=== PATIENT | female | born 1970 | race Caucasian/White ===

== ENCOUNTER 2016-04-01 21:03 | Emergency (ER) | payer MEDICARE | END 2016-04-02 03:04 | disposition home or self-care (01) | LOC: ER 21:03 | DX: L03.313 Cellulitis of chest wall (principal); F17.210 Nicotine dependence, cigarettes, uncomplicated | CPT/HCPCS: 36415; 85025 ==

== ENCOUNTER 2016-04-15 13:46 | Inpatient (IN) | payer MEDICARE ==
[~2016-04-15] VITALS: Ht 149.9 cm; Wt 37.1 kg
[2016-04-15] MEDS ORDERED: ONDANSETRON 4 MG VIAL ONE (17:16)
[2016-04-15] MEDS ORDERED: SODIUM CHLORIDE 0.9% 1,000 ML ONE (17:16)
[2016-04-15] MEDS ORDERED: VANCOMYCIN 750 MG in SODIUM CHLORIDE 0.9% 250 ML IV ONE (17:25)
[2016-04-15] MEDS ORDERED: MORPHINE 4 MG/ML SYR ONE ×2 (17:55→19:33)
[2016-04-15 22:04] VITALS: BP_SYST 100; RESP 18; TEMP 97.6
[2016-04-15 22:06] VITALS: BMI 16.5
[2016-04-15] MEDS: DILAUDID 1 MG/ML AMP IV PRN (22:44)
[2016-04-15] MEDS: DOXYCYCLINE 100 MG TAB PO SCH (22:54)
[2016-04-15] MEDS: PROMETHAZINE 25 MG/ML VIAL IV PRN (22:54)
[2016-04-16 03:33] VITALS: BP_SYST 90; RESP 20; TEMP 97.8
[2016-04-16] MEDS: PROMETHAZINE 25 MG/ML VIAL IV PRN ×3 (04:55→21:55)
[2016-04-16] MEDS: DILAUDID 1 MG/ML AMP IV PRN ×5 (04:56→21:55)
[2016-04-16 08:02] VITALS: BP_SYST 96; RESP 18; TEMP 97.9
[2016-04-16] MEDS: DOXYCYCLINE 100 MG TAB PO SCH ×2 (08:29→21:54)
[2016-04-16 10:52] VITALS: BP_SYST 94; RESP 18; TEMP 98.5
[2016-04-16 11:46] VITALS: Ht 149.9 cm; Wt 37.1 kg
[2016-04-16 16:49] VITALS: BP_SYST 92; RESP 18; TEMP 98.9
[2016-04-16] MEDS ORDERED: DOCUSATE SOD 100 MG CAP PO PRN (18:30)
[2016-04-16] MEDS: NEB-BROVANA 15 MCG/2 ML INH SCH (19:00)
[2016-04-16 19:25] VITALS: BP_SYST 102; RESP 20; TEMP 97.8
[2016-04-16] MEDS: QUETIAPINE XR 50 MG TAB PO SCH (21:54)
[2016-04-16 23:41] VITALS: BP_SYST 92; RESP 18; TEMP 98.4
[2016-04-17] VITALS (7 sets, daily range): BP systolic 88–110; RESP 16–18; TEMP 97.6–98.3
[2016-04-17] MEDS: PROMETHAZINE 25 MG/ML VIAL IV PRN ×3 (05:23→23:01)
[2016-04-17] MEDS: DILAUDID 1 MG/ML AMP IV PRN ×5 (05:23→23:26)
[2016-04-17] MEDS: NEB-BROVANA 15 MCG/2 ML INH SCH ×2 (07:23→18:45)
[2016-04-17] MEDS: DOXYCYCLINE 100 MG TAB PO SCH ×2 (08:00→20:28)
[2016-04-17] MEDS: QUETIAPINE XR 50 MG TAB PO SCH (20:28)
[2016-04-18 03:11] VITALS: BP_SYST 92; RESP 16; TEMP 98.4
[2016-04-18] MEDS: PROMETHAZINE 25 MG/ML VIAL IV PRN (05:15)
[2016-04-18] MEDS: DILAUDID 1 MG/ML AMP IV PRN ×2 (05:16→09:28)
[2016-04-18] MEDS: NEB-BROVANA 15 MCG/2 ML INH SCH (06:16)
[2016-04-18 07:56] VITALS: BP_SYST 102; RESP 18; TEMP 98.3
[2016-04-18] MEDS: DOXYCYCLINE 100 MG TAB PO SCH (08:38)
[2016-04-18 11:44] VITALS: BP_SYST 102; RESP 18; TEMP 98.3
[2016-04-18 11:54] VITALS: BP_SYST 102; RESP 18; TEMP 98.3
[2016-04-18 12:36] VITALS: BP_SYST 98; RESP 18; TEMP 98.3
[2016-04-18 13:31] VITALS: BP_SYST 98; RESP 18; TEMP 98.3
== END 2016-04-18 14:02 | disposition home health service (06) | DRG 314 ==
LOC: ENRESERVTM → ENRESERVDT → ENRESERV → ER 13:46 → EMR 19:21 → 3NT 21:17 → OBSVTOIN 04-17 09:43 → ENPENDDIS 04-17 09:43
PROVIDERS: ADMIT Internal Medicine; ATTEND Internal Medicine
PROC: 02HV33Z Insertion of Infusion Device into Superior Vena Cava, Percutaneous Approach (ICD-10-PCS; principal; 2016-04-18)
DX: T80.219A Unspecified infection due to central venous catheter, initial encounter (principal); E43 Unspecified severe protein-calorie malnutrition; Z68.1 Body mass index [BMI] 19.9 or less, adult; B95.62 Methicillin resistant Staphylococcus aureus infection as the cause of diseases classified elsewhere; D64.9 Anemia, unspecified; K31.84 Gastroparesis
CPT/HCPCS: 36415; 36569; 71020; 76937; 80048; 80053; 82553; 83605; 84484; 85025; 85652; 87040; 87804; 93005; 94640; 94799; 96361; 96365; 96375; 96376; 99223; 99232